=== PATIENT | female | born 1975 | race Caucasian/White ===

== ENCOUNTER 2018-06-19 03:27 | Emergency (ER) | payer MEDICAID ==
[~2018-06-19] VITALS: Ht 154.9 cm; Wt 81.8 kg
[~2018-06-19 03:27] MED LIST: PREN-64 PO
[2018-06-19 04:31] LABS: INFLUENZA TYPE A NEGATIVE FOR TYPE A (NEGATIVE); INFLUENZA TYPE B NEGATIVE FOR TYPE B (NEGATIVE)
[2018-06-19 04:43] VITALS: BP 124/74
== END 2018-06-19 05:15 | disposition home or self-care (01) ==
LOC: EMS 03:28
DX: R09.81 Nasal congestion (principal); R05 Cough; R11.2 Nausea with vomiting, unspecified; Z90.49 Acquired absence of other specified parts of digestive tract
CPT/HCPCS: 87804